=== PATIENT | female | born 2000 | race Two or more races ===

== ENCOUNTER 2025-06-27 06:31 | Emergency (ER) | payer OTHER ==
[~2025-06-27] VITALS: Ht 149.9 cm; Wt 60.8 kg
[2025-06-27] MEDS ORDERED: KETOROLAC TROMETHAMINE 60 MG VIAL IM ONE ×2 (07:42→07:45)
[2025-06-27] MEDS ORDERED: BENZONATATE 100 MG CAPSULE PO ONE (07:45)
[2025-06-27 07:58] LABS: BASO % 0.2 % (0.1-1.2); EOS # 0.03 (0.04-0.54); EOS % 0.3 % (0.7-7.0); LYMPH # 0.80 (1.18-3.74); LYMPH % 7.8 % (19.3-53.1); MEAN PLATELET VOLUME 9.80 fl (9.4-12.4); MONO # 1.09 (0.24-0.82); MONO % 10.7 % (4.7-12.5); NEUT # 8.23 (1.56-6.13); NEUT % 80.6 % (34.0-71.1); RED CELL DISTRIBUTION WIDTH 14.8 % (11.6-14.4)
[2025-06-27 08:29] LABS: COVID-19 AG NEGATIVE (NEGATIVE)
[2025-06-27] MEDS ORDERED: AZITHROMYCIN500 MG PO (09:46)
[2025-06-27] MEDS ORDERED: BENZONATATE200 M1 PO (09:46)
[2025-06-27] MEDS ORDERED: PEPCID AC20 MG PO (09:46)
== END 2025-06-27 09:50 | disposition home or self-care (01) ==
LOC: ER 06:32
PROVIDERS: General Practice
DX: R05.8 Other specified cough (principal); Z20.822 Contact with and (suspected) exposure to COVID-19